=== PATIENT | male | born 1985 | race Two or more races ===

== ENCOUNTER 2017-04-28 23:29 | Inpatient (IN) | payer MEDICAID ==
[~2017-04-28] VITALS: Ht 180.3 cm; Wt 106.1 kg
[2017-04-29 00:14] LABS: BASOPHIL % 0.5 % (0-2); PLATELET COUNT 148 x10^3mcL (130-400)
[2017-04-29 00:21] LABS: CALCIUM 9.5 mg/dL (8.5-10.1); CARBON DIOXIDE 29.9 mmol/L (21-32); CHLORIDE SERUM 102 mmol/L (98-107); CREATININE SERUM 1.1 mg/dL (0.7-1.3); GFR1 > 60 mL/min; GLUCOSE SERUM 128 mg/dL (74-106); POTASSIUM SERUM 3.8 mmol/L (3.5-5.1); SODIUM SERUM 141 mmol/L (136-145)
[2017-04-29 00:33] LABS: T3 TOTAL 1.13 ng/mL
[2017-04-29 00:37] LABS: FREE T4 1.26 ng/dL (0.76-1.46); FREE THYROXINE INDEX 3.9 ug/dL (1.4-4.5); T4(THYROXINE) 11.4 ug/dL (4.7-13.3)
[2017-04-29 00:40] LABS: ALBUMIN 4.3 g/dL (3.4-5.0); ALKALINE PHOSPHATASE 78 U/L (46-116); ALT/SGPT 33 U/L (16-63); AST/SGOT 14 U/L (15-37); BILIRUBIN TOTAL 0.8 mg/dL (0.20-1.00); CHOLESTEROL 180 mg/dL (<200); HDL CHOLESTEROL 40 mg/dL (40-60); MAGNESIUM 2.1 mg/dL (1.8-2.4)
[2017-04-29 01:22] LABS: microscopic required? NO
[2017-04-29 01:47] LABS: UA SPECIFIC GRAVITY 1.015 (1.005-1.035); urine erythrocyte NEGATIVE (NEGATIVE)
[2017-04-29 01:54] LABS: AMPHETAMINE QUAL UR NONE DETECTED (NEG <=1000)
[2017-04-29 04:04] VITALS: BP 119/70
[2017-04-29 04:56] LABS: CHOLESTEROL/HDL RATIO 4.5
[2017-04-29 09:24] VITALS: BP 108/77
[2017-04-29 13:46] VITALS: BP 114/75
[2017-04-29 18:20] VITALS: BP 125/78
[2017-04-29 20:52] VITALS: BP 120/72
[2017-04-30 05:14] VITALS: BP 108/54
[2017-04-30 06:07] LABS: BASOPHIL % 0.3 % (0-2); PLATELET COUNT 146 x10^3mcL (130-400); RED CELL DISTRIBUTION WIDTH 13.6 % (11.5-14.5)
[2017-04-30 06:15] LABS: CARBON DIOXIDE 28.8 mmol/L (21-32); CHLORIDE SERUM 106 mmol/L (98-107); CREATININE SERUM 0.9 mg/dL (0.7-1.3); GFR1 > 60 mL/min; GLUCOSE SERUM 101 mg/dL (74-106); PHOSPHOROUS 3.5 mg/dL (2.5-4.9); POTASSIUM SERUM 4.3 mmol/L (3.5-5.1); SODIUM SERUM 142 mmol/L (136-145)
[2017-04-30 10:01] VITALS: BP 120/76
[2017-04-30] MEDS ORDERED: COL100 PO (12:37)
[2017-04-30 12:57] VITALS: BP 120/76
== END 2017-04-30 14:30 | disposition home or self-care (01) | DRG 204 ==
LOC: ED 23:29 → DU 04-29 02:49 → MU 04-30 06:49
PROVIDERS: Emergency Medicine; ADMIT Family Medicine Sports Medicine
DX: R55 Syncope and collapse (principal); I07.1 Rheumatic tricuspid insufficiency; R10.11 Right upper quadrant pain; I51.7 Cardiomegaly; K57.90 Diverticulosis of intestine, part unspecified, without perforation or abscess without bleeding; E78.5 Hyperlipidemia, unspecified; Z68.31 Body mass index [BMI] 31.0-31.9, adult
CPT/HCPCS: 83880; 84439; J7030; Q0092